=== PATIENT | male | born 1985 | race Caucasian/White ===

== ENCOUNTER 2017-11-25 15:03 | Emergency (ER) | payer MEDICAID ==
[~2017-11-25] VITALS: Ht 182.9 cm; Wt 116.0 kg
[2017-11-25 15:08] VITALS: BP 154/96
[2017-11-25] MEDS ORDERED: mupirocin 2% ointment 22GM TP STA (15:20)
[2017-11-25] MEDS ORDERED: cephalexin 250mg capsule PO ONE (15:20)
[2017-11-25] MEDS ORDERED: DOXY100C43 PO (15:24)
[2017-11-25] MEDS ORDERED: KETO15CR2 TP (15:24)
[2017-11-25] MEDS ORDERED: MUPI22OI30 TOP (15:24)
[2017-11-25] MEDS ORDERED: zinc oxide ointment 30gm tube TP SCH (20:00)
== END 2017-11-25 15:58 | disposition home or self-care (01) ==
LOC: ER 15:03
DX: N49.2 Inflammatory disorders of scrotum (principal); L98.9 Disorder of the skin and subcutaneous tissue, unspecified; Z79.899 Other long term (current) drug therapy
CPT/HCPCS: 99284

== ENCOUNTER 2020-07-25 12:06 | Emergency (ER) | payer MEDICAID ==
[~2020-07-25] VITALS: Ht 182.9 cm; Wt 141.8 kg
[~2020-07-25 12:06] MED LIST: KETO15CR2 TP
[2020-07-25 12:39] LABS: BASOPHILS % (AUTO) 0.5 % (0-1); EOSINOPHILS # (AUTO) 0.2 X10'3 (0-0.9); EOSINOPHILS % (AUTO) 3.1 % (0-6); HEMATOCRIT 43.8 % (42.0-52.0); HEMOGLOBIN 14.6 g/dl (14.0-17.9); LYMPHOCYTES # (AUTO) 1.7 X10'3 (1.1-4.8); MEAN CORPUSCULAR HGB CONC 33.3 g/dL (33.0-36.5); MEAN CORPUSCULAR VOLUME 87.2 FL (78-98); MEAN PLATELET VOLUME 9.7 FL (7.4-10.4); MONOCYTES # (AUTO) 0.6 X10'3 (0-0.9); MONOCYTES % (AUTO) 8.8 % (2-12); NEUTROPHILS # (AUTO) 4.5 X10'3 (1.8-7.7); NEUTROPHILS % (AUTO) 63.6 % (42-75); PLATELET COUNT 196 X10'3 (140-440); RED BLOOD COUNT 5.02 X10'6 (4.70-6.10); RED CELL DISTRIBUTION WIDTH 14.5 % (11.5-14.5); WHITE BLOOD COUNT 7.1 X10'3 (4.5-11.0)
[2020-07-25 12:52] LABS: ALANINE AMINOTRANSFERASE 84 U/L (12-78); ALBUMIN 3.5 G/DL (3.4-5.0); ALBUMIN/GLOBULIN RATIO 0.8 (1.1-1.5); ALKALINE PHOSPHATASE 104 IU/L (46-116); AMYLASE 56 U/L (25-115); ANION GAP 7 (8-16); ASPARTATE AMINO TRANSFERASE 27 U/L (10-37); BILIRUBIN,TOTAL 0.2 MG/DL (0.1-1.0); BLOOD UREA NITROGEN 16 MG/DL (7-18); BUN/CREATININE RATIO 15.1 (5.4-32.0); CALCIUM 8.8 MG/DL (8.5-10.1); CHLORIDE 105 MMOL/L (99-107); CREATININE 1.06 MG/DL (0.60-1.10); GLUCOSE 96 MG/DL (70-104); LIPASE 307 U/L (73-393); POTASSIUM 4.6 MMOL/L (3.5-5.1); SODIUM 140 MMOL/L (135-145); TOTAL CARBON DIOXIDE 28.4 MMOL/L (24-32); TOTAL PROTEIN 7.7 G/DL (6.4-8.2); eGFR 80 ML/MIN
[2020-07-25] MEDS ORDERED: MUPI22OI30 TOP (13:09)
[2020-07-25 13:10] VITALS: BP 135/91
== END 2020-07-25 13:26 | disposition home or self-care (01) ==
LOC: ER 12:07
DX: T14.8XXA Other injury of unspecified body region, initial encounter (principal); R10.33 Periumbilical pain; Z79.2 Long term (current) use of antibiotics; Z79.899 Other long term (current) drug therapy; X58.XXXA Exposure to other specified factors, initial encounter; Y93.89 Activity, other specified; Y92.89 Other specified places as the place of occurrence of the external cause; Y99.8 Other external cause status
CPT/HCPCS: 36415; 80053; 82150; 83690; 85025; 99283

== ENCOUNTER 2021-12-23 11:41 | Emergency (ER) | payer MEDICAID ==
[~2021-12-23] VITALS: Ht 182.9 cm; Wt 153.2 kg
[2021-12-23 12:23] VITALS: BP 141/88
[2021-12-23] MEDS ORDERED: predniSONE 20 mg tablet PO ONE (13:35)
[2021-12-23] MEDS ORDERED: ipratropium/albuterol 3ml nebule NEB PRN (13:35)
[2021-12-23] MEDS ORDERED: PRED20TA PO (15:22)
== END 2021-12-23 15:37 | disposition home or self-care (01) ==
LOC: ER 11:42
DX: J45.901 Unspecified asthma with (acute) exacerbation (principal); F17.200 Nicotine dependence, unspecified, uncomplicated; Z20.822 Contact with and (suspected) exposure to COVID-19
CPT/HCPCS: 71045; 87502; 87503; 87635; 99284; C9803; J7512

== ENCOUNTER 2022-01-04 16:51 | Emergency (ER) | payer MEDICAID ==
[~2022-01-04 16:51] MED LIST changes: +PRED20TA PO
== END 2022-01-04 18:26 | disposition left against medical advice (07) ==
LOC: ER 16:51
DX: R07.9 Chest pain, unspecified (principal); Z53.21 Procedure and treatment not carried out due to patient leaving prior to being seen by health care provider

== ENCOUNTER → 2022-03-20 | Emergency (ER) | payer MEDICAID ==
[~2022-03-20] VITALS: Ht 182.9 cm; Wt 159.1 kg
[~2022-03-20] MED LIST changes: -PRED20TA PO
[2022-03-20 20:48] LABS: BASOPHILS % (AUTO) 0.3 % (0-1); EOSINOPHILS # (AUTO) 0.2 X10'3 (0-0.9); EOSINOPHILS % (AUTO) 2.2 % (0-6); HEMATOCRIT 44.8 % (42.0-52.0); HEMOGLOBIN 15.2 g/dl (14.0-17.9); LYMPHOCYTES # (AUTO) 1.6 X10'3 (1.1-4.8); LYMPHOCYTES % (AUTO) 16.9 % (21-51); MEAN CORPUSCULAR HEMOGLOBIN 29.1 PG (27.0-31.0); MEAN CORPUSCULAR HGB CONC 33.8 g/dL (33.0-36.5); MEAN PLATELET VOLUME 9.4 FL (7.4-10.4); MONOCYTES # (AUTO) 0.9 X10'3 (0-0.9); MONOCYTES % (AUTO) 9.3 % (2-12); NEUTROPHILS # (AUTO) 6.9 X10'3 (1.8-7.7); NEUTROPHILS % (AUTO) 71.3 % (42-75); PLATELET COUNT 209 X10'3 (140-440); RED BLOOD COUNT 5.21 X10'6 (4.70-6.10); RED CELL DISTRIBUTION WIDTH 14.8 % (11.5-14.5); WHITE BLOOD COUNT 9.6 X10'3 (4.5-11.0)
[2022-03-20 20:58] LABS: ALANINE AMINOTRANSFERASE 75 U/L (12-78); ALBUMIN 3.8 G/DL (3.4-5.0); ALBUMIN/GLOBULIN RATIO 0.8 (1.1-1.5); ALKALINE PHOSPHATASE 97 IU/L (46-116); ANION GAP 12 (8-16); ASPARTATE AMINO TRANSFERASE 24 U/L (10-37); BILIRUBIN,TOTAL 0.2 MG/DL (0.1-1.0); BLOOD UREA NITROGEN 15 MG/DL (7-18); CALCIUM 9.5 MG/DL (8.5-10.1); CHLORIDE 102 MMOL/L (99-107); GLUCOSE 100 MG/DL (70-104); POTASSIUM 4.3 MMOL/L (3.5-5.1); SODIUM 139 MMOL/L (135-145); TOTAL PROTEIN 8.7 G/DL (6.4-8.2); eGFR 86 ML/MIN
--- NOTE | 2022-03-20 23:42 | NUR ---
RECEIVED PT IN ROOM 13.CALL LIGHT WITHIN REACH.PATIENT ATTACHED TO SENIOR PAYROLL ADMINISTRATOR.
[2022-03-21 00:25] VITALS: BP 138/89
== END | disposition home or self-care (01) ==
LOC: ER 19:31
DX: R07.89 Other chest pain (principal); I10 Essential (primary) hypertension; J45.909 Unspecified asthma, uncomplicated; Z79.2 Long term (current) use of antibiotics
CPT/HCPCS: 36415; 71045; 80053; 83880; 84484; 85025; 93005; 99285

== ENCOUNTER 2022-05-17 11:59 | Emergency (ER) | payer MEDICAID ==
[~2022-05-17] VITALS: Ht 182.9 cm; Wt 169.6 kg
[2022-05-17 12:37] LABS: BASOPHILS # (AUTO) 0.1 X10'3 (0-0.2); BASOPHILS % (AUTO) 0.9 % (0-1); EOSINOPHILS # (AUTO) 0.3 X10'3 (0-0.9); EOSINOPHILS % (AUTO) 2.7 % (0-6); HEMATOCRIT 47.4 % (42.0-52.0); HEMOGLOBIN 16.3 g/dl (14.0-17.9); LYMPHOCYTES # (AUTO) 2.2 X10'3 (1.1-4.8); LYMPHOCYTES % (AUTO) 22.6 % (21-51); MEAN CORPUSCULAR HEMOGLOBIN 29.2 PG (27.0-31.0); MEAN CORPUSCULAR HGB CONC 34.4 g/dL (33.0-36.5); MEAN CORPUSCULAR VOLUME 84.9 FL (78-98); MEAN PLATELET VOLUME 9.3 FL (7.4-10.4); MONOCYTES % (AUTO) 10.2 % (2-12); NEUTROPHILS # (AUTO) 6.1 X10'3 (1.8-7.7); NEUTROPHILS % (AUTO) 63.6 % (42-75); PLATELET COUNT 229 X10'3 (140-440); RED BLOOD COUNT 5.58 X10'6 (4.70-6.10); RED CELL DISTRIBUTION WIDTH 14.1 % (11.5-14.5); WHITE BLOOD COUNT 9.6 X10'3 (4.5-11.0)
[2022-05-17] MEDS ORDERED: methylPREDNISolone sod succ 125mg/2ml vial IV ONE (12:40)
[2022-05-17] MEDS ORDERED: normal saline 1000ML IV soln IVB ONE (12:40)
[2022-05-17] MEDS ORDERED: ipratropium/albuterol 3ml nebule NEB ONE (12:40)
[2022-05-17 12:49] LABS: ALANINE AMINOTRANSFERASE 104 U/L (12-78); ALBUMIN 4.1 G/DL (3.4-5.0); ALBUMIN/GLOBULIN RATIO 0.9 (1.1-1.5); ALKALINE PHOSPHATASE 111 IU/L (46-116); ANION GAP 10 (8-16); ASPARTATE AMINO TRANSFERASE 33 U/L (10-37); BILIRUBIN,TOTAL 0.2 MG/DL (0.1-1.0); BLOOD UREA NITROGEN 24 MG/DL (7-18); BUN/CREATININE RATIO 21.4 (5.4-32.0); CALCIUM 10.2 MG/DL (8.5-10.1); CHLORIDE 102 MMOL/L (99-107); CREATININE 1.12 MG/DL (0.60-1.10); D-DIMER 0.44 MG/L FEU (0-0.50); GLUCOSE 82 MG/DL (70-104); POTASSIUM 4.5 MMOL/L (3.5-5.1); SODIUM 140 MMOL/L (135-145); TOTAL CARBON DIOXIDE 28.4 MMOL/L (24-32); TOTAL PROTEIN 8.9 G/DL (6.4-8.2); eGFR 75 ML/MIN
[2022-05-17] MEDS ORDERED: PRED20TA PO ×2 (13:44→14:27)
[2022-05-17 14:42] VITALS: BP 157/109
== END 2022-05-17 14:43 | disposition home or self-care (01) ==
LOC: ER 12:00
DX: J40 Bronchitis, not specified as acute or chronic (principal); I10 Essential (primary) hypertension; E78.00 Pure hypercholesterolemia, unspecified
CPT/HCPCS: 36415; 71045; 80053; 83880; 84145; 84484; 85025; 85379; 93005; 94640; 96361; 96374; 99285; J2930; J7030; 94760

== ENCOUNTER 2022-07-01 07:05 | Emergency (ER) | payer MEDICAID ==
[~2022-07-01] VITALS: Ht 182.9 cm; Wt 170.0 kg
[2022-07-01 08:02] LABS: BASOPHILS # (AUTO) 0.1 X10'3 (0-0.2); BASOPHILS % (AUTO) 0.7 % (0-1); EOSINOPHILS # (AUTO) 0.2 X10'3 (0-0.9); EOSINOPHILS % (AUTO) 1.4 % (0-6); HEMATOCRIT 47.3 % (42.0-52.0); HEMOGLOBIN 15.7 g/dl (14.0-17.9); LYMPHOCYTES # (AUTO) 1.6 X10'3 (1.1-4.8); LYMPHOCYTES % (AUTO) 13.5 % (21-51); MEAN CORPUSCULAR HGB CONC 33.2 g/dL (33.0-36.5); MEAN CORPUSCULAR VOLUME 87.4 FL (78-98); MEAN PLATELET VOLUME 9.4 FL (7.4-10.4); MONOCYTES # (AUTO) 1.1 X10'3 (0-0.9); MONOCYTES % (AUTO) 8.9 % (2-12); NEUTROPHILS # (AUTO) 9.1 X10'3 (1.8-7.7); NEUTROPHILS % (AUTO) 75.5 % (42-75); PLATELET COUNT 241 X10'3 (140-440); RED BLOOD COUNT 5.42 X10'6 (4.70-6.10); RED CELL DISTRIBUTION WIDTH 15.4 % (11.5-14.5); WHITE BLOOD COUNT 12.1 X10'3 (4.5-11.0)
[2022-07-01] MEDS ORDERED: GABA-530 PO (08:37)
[2022-07-01] MEDS ORDERED: METO-411 PO (08:37)
[2022-07-01] MEDS ORDERED: ALBU2.5V10 NEB (08:37)
[2022-07-01] MEDS ORDERED: LISI40TA13 PO (08:37)
[2022-07-01] MEDS ORDERED: ATOR40TA72 PO (08:37)
[2022-07-01 08:41] LABS: ALANINE AMINOTRANSFERASE 86 U/L (12-78); CHLORIDE 100 MMOL/L (99-107); SODIUM 138 MMOL/L (135-145)
[2022-07-01 08:44] LABS: ALBUMIN 3.9 G/DL (3.4-5.0); ALBUMIN/GLOBULIN RATIO 0.9 (1.1-1.5); ALKALINE PHOSPHATASE 96 IU/L (46-116); ANION GAP 12 (8-16); ASPARTATE AMINO TRANSFERASE 35 U/L (10-37); BILIRUBIN,TOTAL 0.3 MG/DL (0.1-1.0); BLOOD UREA NITROGEN 31 MG/DL (7-18); BUN/CREATININE RATIO 25.2 (5.4-32.0); CALCIUM 9.8 MG/DL (8.5-10.1); CREATININE 1.23 MG/DL (0.60-1.10); GLUCOSE 101 MG/DL (70-104); MAGNESIUM 2.2 MG/DL (1.5-2.4); POTASSIUM 4.4 MMOL/L (3.5-5.1); TOTAL CARBON DIOXIDE 26.3 MMOL/L (24-32); TOTAL PROTEIN 8.4 G/DL (6.4-8.2); eGFR 67 ML/MIN
[2022-07-01 10:22] VITALS: BP 126/56
[2022-07-01] MEDS ORDERED: PANT20TA18 PO (12:06)
== END 2022-07-01 12:15 | disposition home or self-care (01) ==
LOC: ER 07:05
DX: R07.89 Other chest pain (principal); R06.02 Shortness of breath; R10.9 Unspecified abdominal pain; E78.00 Pure hypercholesterolemia, unspecified; I10 Essential (primary) hypertension; J45.909 Unspecified asthma, uncomplicated; F17.200 Nicotine dependence, unspecified, uncomplicated; Z79.899 Other long term (current) drug therapy
CPT/HCPCS: 36415; 71045; 80053; 83735; 83880; 84484; 85025; 93005; 99285

== ENCOUNTER → 2022-08-08 | Outpatient (CLI) | payer MEDICAID ==
[~2022-08-08] MED LIST changes: +ALBU2.5V10 NEB; +ATOR40TA72 PO; +GABA-530 PO; +LISI40TA13 PO; +METO-411 PO; +PANT20TA18 PO
== END | disposition home or self-care (01) ==
LOC: CARD DIAG 13:33
PROVIDERS: ATTEND Physician Assistant
DX: I37.1 Nonrheumatic pulmonary valve insufficiency (principal); I77.89 Other specified disorders of arteries and arterioles; R06.02 Shortness of breath; I10 Essential (primary) hypertension; R60.0 Localized edema
CPT/HCPCS: 93306

== ENCOUNTER 2023-02-19 08:44 | Emergency (ER) | payer MEDICAID ==
[~2023-02-19] VITALS: Ht 182.9 cm; Wt 176.4 kg
[2023-02-19 08:45] VITALS: BP 177/99; PULSE 99; TEMP 98.1; O2SAT 98
[2023-02-19] MEDS ORDERED: LIDO700A32 TOP (10:38)
[2023-02-19] MEDS ORDERED: LIDOcaine 5% patch TP STA (10:38)
[2023-02-19] MEDS ORDERED: HYDROcodone/acetaminophen 10/325mg tab PO ONE (10:40)
[2023-02-19 10:50] VITALS: RESP 19
== END 2023-02-19 10:57 | disposition home or self-care (01) ==
LOC: ER 08:45
DX: R07.1 Chest pain on breathing (principal)
CPT/HCPCS: 71100; 99283

== ENCOUNTER 2024-12-23 09:42 | Inpatient (IN) | payer MEDICAID ==
[2024-12-23] VITALS (9 sets, daily range): BP systolic 139; BP diastolic 80; PULSE 94–106; RESP 20–28; TEMP 97.8; O2SAT 95–99
[~2024-12-23] VITALS: Ht 182.9 cm; Wt 181.8 kg
[~2024-12-23 09:42] MED LIST changes: +LIDO-52 TOP
--- NOTE | 2024-12-23 09:49 | Physician Documentation ---
History of Present Illness ~ Chief Complaint: Shortness of Breath Stated Complaint: RESPIRATORY DISTRESS Time Seen by MD: 09:52 Primary Medical Doctor: DR URENA HPI 49-year-old male presents to the ED with a complaint of shortness a breath which has worsened over yesterday evening. He states he developed a cough and URI symptoms however he has a pre-existing diagnosis of asthma. Throughout the night he had difficulty catching his breath. Presents very short of breath 1-2 word sentences Complains of midsternal pain. Day of Onset: Dec 23, 2024 Medication Reconciliation Allergies: Uncoded Allergies: MAJOR ANESTHESIAS (Allergy, Unknown, MALIGNANT HYPERTHERMIA, 05/17/22) MALIGNANT HYPERTHERMIA (Allergy, Unknown, 12/23/21) Scheduled Atorvastatin Calcium (Atorvastatin Calcium), 1 TAB PO DAILY, (Reported) Gabapentin (Gabapentin), 100 MG PO TID, (Reported) Ketoconazole (Ketoconazole), 1 APPLIC TP TID Lidocaine (Lidoderm), 1 PATCH TOP DAILY Lisinopril* (Lisinopril*), 1 TAB PO DAILY, (Reported) Metoprolol Succinate (Metoprolol Succinate), 1 TAB PO DAILY, (Reported) Pantoprazole Sodium (Protonix), 1 TAB PO DAILY Scheduled PRN Albuterol Sulfate (Albuterol Sulfate), VIAL NEB TID PRN for wheezing, (Reported) Past Medical History Past Medical History: *CARDIOVASCULAR*, , High Cholesterol, Hypertension, Asthma Past Surgical History: no surgical history Alcohol Use: None Drug Use: none Lives with: Family Lives In: Home Review of Systems All Other Systems at this time: Reviewed and Negative ROS As stated above in the HPI, otherwise all systems are reviewed and negative. Physical Exam Physical Exam General: Alert, . large body habitus HEENT: PERRL, EOMI, no injection, moist mucous membranes. Neck: Full range of motion. Respiratory: Lungs clear, moderate-severe respiratory distress Chest: Positive for accessory muscle use Psychiatric: Normal mood and affect. Skin: Flush skin Progress Results/Orders Results/Orders Orders - GASPER WATT NP Svn Treatment (12/23/24 ) Chest,Two Views (12/23/24 09:49) Culture Blood (12/23/24 09:49) Saline Lock (12/23/24 09:49) Oxygen (12/23/24 09:49) Cta Chest Pe (12/23/24 10:17) Page Hospitalist (12/23/24 ) Completed Orders - GASPER WATT SUPPLY TEACHER Ipratropium/Albuterol Nebule (Ipratrop/A (12/23/24 09:50) Methylprednisolone Sod Succ (Solumedrol (12/23/24 09:50) Chest,Two Views (12/23/24 09:49) Cbc/Diff (12/23/24 09:49) BMP (12/23/24 09:49) PBNP (12/23/24 09:49) Lacticsepsis (12/23/24 09:49) Cta Chest Pe (12/23/24 10:17) Stat Ekg (12/23/24 10:39) Iohexol 350mg/Ml 100ml (Omnipaque 350mg/ (12/23/24 11:32) Hgb A1c (12/23/24 10:38) Vital Signs 12/23/24 12/23/24 12/23/24 12/23/24 09:45 10:09 10:12 10:32 Temp 97.4 Pulse 113 106 105 Resp 28 28 24 36 B/P (MAP) 172/92 Pulse Ox 96 99 O2 Delivery Room Air* Room Air* O2 Flow Rate 0 0 0 FiO2 21 21 12/23/24 12/23/24 11:35 12:30 Pulse 107 97 Resp 30 19 B/P (MAP) 174/109 (130) 156/103 (120) Pulse Ox 93 95 O2 Flow Rate 0 Laboratory Tests Test 12/23/24 10:38 White Blood Count 8.1 Red Blood Count 4.79 Hemoglobin 13.7 L Hematocrit 40.7 L Mean Corpuscular Volume 85.0 Mean Corpuscular Hemoglobin 28.6 Mean Corpuscular Hemoglobin Concent 33.6 Red Cell Distribution Width 15.1 H Platelet Count 163 Mean Platelet Volume 10.2 Neutrophils (%) (Auto) 80.5 H Lymphocytes (%) (Auto) 10.0 L Monocytes (%) (Auto) 7.5 Eosinophils (%) (Auto) 1.6 Basophils (%) (Auto) 0.4 Neutrophils # (Auto) 6.5 Lymphocytes # (Auto) 0.8 L Monocytes # (Auto) 0.6 Eosinophils # (Auto) 0.1 Basophils # (Auto) 0.0 CBC Comment Sodium Level 141 Potassium Level 4.1 Chloride Level 106 Carbon Dioxide Level 26.4 Anion Gap 9 Blood Urea Nitrogen 14 Creatinine 1.07 Estimated GFR/1.73 m2 78 BUN/Creatinine Ratio 13.1 Glucose Level 98 Hemoglobin A1c 5.9 Lactic Acid Level 1.8 Calcium Level 8.9 Pro-B-Type Natriuretic Peptide 232 H Albumin 3.5 Chemistry Comments Medical Decision Making Findings Patient received SVN treatment and steroids in the ED with only minimal improvement. Notable for severe wheezes he does have grossly diminished lung sounds trying to rule out a pulmonary embolism via CT Departure Disposition: ADMITTED INPATIENT Impression: Primary Impression: Asthma Additional Impression: Respiratory distress Condition: Fair Referrals: NO PRIMARY CARE PROVIDER (PCP) Signature Scribe Signature: c Attestation: Scribed for Gasper Watt Senior Master Scheduler by Gasper De Jesus NP . 12/23/24 18:19 GASPER WATT SUPPLY TEACHER Dec 23, 2024 09:49
[2024-12-23] MEDS: ipratropium/albuterol 3ml nebule NEB ONE (10:06)
[2024-12-23] MEDS: methylPREDNISolone sod succ 125mg/2ml vial IV ONE (10:40)
[2024-12-23 11:00] LABS: BASOPHILS % (AUTO) 0.4 % (0-1); EOSINOPHILS # (AUTO) 0.1 X10'3 (0-0.9); EOSINOPHILS % (AUTO) 1.6 % (0-6); HEMATOCRIT 40.7 % (42.0-52.0); HEMOGLOBIN 13.7 g/dl (14.0-17.9); LYMPHOCYTES # (AUTO) 0.8 X10'3 (1.1-4.8); MEAN CORPUSCULAR HEMOGLOBIN 28.6 PG (27.0-31.0); MEAN CORPUSCULAR HGB CONC 33.6 g/dL (33.0-36.5); MEAN PLATELET VOLUME 10.2 FL (7.4-10.4); MONOCYTES # (AUTO) 0.6 X10'3 (0-0.9); MONOCYTES % (AUTO) 7.5 % (2-12); NEUTROPHILS # (AUTO) 6.5 X10'3 (1.8-7.7); NEUTROPHILS % (AUTO) 80.5 % (42-75); PLATELET COUNT 163 X10'3 (140-440); RED BLOOD COUNT 4.79 X10'6 (4.70-6.10); RED CELL DISTRIBUTION WIDTH 15.1 % (11.5-14.5); WHITE BLOOD COUNT 8.1 X10'3 (4.5-11.0)
[2024-12-23 11:15] LABS: ALBUMIN 3.5 G/DL (3.4-5.0); ANION GAP 9 (8-16); BLOOD UREA NITROGEN 14 MG/DL (7-18); BUN/CREATININE RATIO 13.1 (10.0-20.0); CALCIUM 8.9 MG/DL (8.5-10.1); CHLORIDE 106 MMOL/L (99-107); CREATININE 1.07 MG/DL (0.60-1.10); GLUCOSE 98 MG/DL (70-104); POTASSIUM 4.1 MMOL/L (3.5-5.1); PRO BRAIN NATRIURETIC PEPTIDE 232 PG/ML (0-125); SODIUM 141 MMOL/L (135-145); TOTAL CARBON DIOXIDE 26.4 MMOL/L (24-32); eCRCL 104 ML/MIN; eGFR 78 ML/MIN
[2024-12-23] MEDS ORDERED: iohexol 350MG/ML 100ml bottle IV ONE (11:32)
[2024-12-23] MEDS ORDERED: acetaminophen 325mg tablet PO PRN ×2 (13:30)
[2024-12-23] MEDS ORDERED: magnesium sulf-water 2g/50mL 50 ML IV PRN (13:30)
[2024-12-23] MEDS ORDERED: mag hydrox/Alum hydrox/simeth 30ml oral suspension PO PRN (13:30)
[2024-12-23] MEDS ORDERED: ondansetron/PF 4mg/2ml inj IV PRN (13:30)
[2024-12-23] MEDS ORDERED: morphine 2 MG/ML inj. syringe IV PRN ×2 (13:30)
[2024-12-23] MEDS ORDERED: magnesium sulf-water 4G/100mL 100 ML IV PRN (13:30)
[2024-12-23] MEDS ORDERED: potassium Cl 20 mEq SR tablet PO PRN ×2 (13:30)
[2024-12-23] MEDS ORDERED: potassium Cl 40MEQ/1/2NS 520ml 520 ML IV PRN (13:30)
[2024-12-23] MEDS ORDERED: HYDROcodone/acetaminophen 5mg/325mg tablet PO PRN (13:30)
[2024-12-23] MEDS ORDERED: ondansetron 4mg rapidly disintigrating tab PO PRN (13:30)
[2024-12-23] MEDS ORDERED: magnesium hydroxide 30ml (MOM) UD suspension PO PRN (13:30)
--- NOTE | 2024-12-23 13:48 | RADIOLOGY REPORT ---
CTA Chest with intravenous contrast INDICATION: rule out PE COMPARISON: None TECHNIQUE: Multidetector spiral CTA of the chest was performed of the chest with intravenous contrast . PULMONARY ANGIOGRAPHY PROTOCOL was utilized using a bolus-tracking technique centered on the main p ulmonary artery. Axial, coronal and sagittal multiplanar and MIP reformats were performed. CONTRAST: Type of contrast: Omni 350 Contrast injected: 100 ml Radiation dose : Chest: CTDI volume is 24 mGy. Dose-length product is 978 mGy*cm The dose indicators for CT are the volume computed Tomography (CT) dose Index (CTDIvol) and the dose Length product (DLP), and are measured in units of mGy and mGy-cm, respectively. These indicators are not patient dose, but values generated from the CT scanner acquisition factors. The report includes radiation exposure data for exposures received during this examination. Findings: Limited by motion. Pulmonary artery: No large central or large segmental pulmonary embolism. Lower neck: Normal thyroid. Lungs: Mild patchy ground-glass opacity in both lungs. Heart/Vascular Structures: Normal heart size. No pericardial effusion. Lymph Nodes: No adenopathy Pleura: No pleural effusion or significant pneumothorax. Musculoskeletal: No acute osseous abnormality. Soft tissues: Normal. Upper abdomen: Limited portions of the upper abdomen are unremarkable. IMPRESSION: 1. No large central pulmonary embolism. 2. Patchy ground-glass opacities in both lungs likely represent subsegmental atelectasis. HS:Y
[2024-12-23] MEDS ORDERED: hydrALAZINE 20mg/ml inj. IV PRN (13:55)
[2024-12-23] MEDS ORDERED: ipratropium/albuterol 3ml nebule NEB PRN (14:00)
--- NOTE | 2024-12-23 14:23 | ELECTROCARDIOGRAPH REPORT ---
[facility] Test Date: 2024-12-23 Test Time: 10:41:53 Pat Name: PEREZ PEDRAZA Department: EMERGENCY ROOM Room: Gender: M Ms Sql Dba: EUGENIO : 1985 Requested By: OLINDA WATT Order Number: [id number] Reading MD: Measurements Intervals [place] Rate: 105 P: 69 [place]: 123 QRS: 35 QRSD: 110 T: 71 QT: 349 QTc: 462 Interpretive Statements Sinus tachycardia Right atrial enlargement Consider right ventricular hypertrophy Baseline wander in lead(s) V4 Please click the below link to view image of tracing.
[2024-12-23] MEDS: CefTRIAXone 2gm/D5W 50ml BAG 50 ML IV ONE (14:25)
[2024-12-23 14:33] LABS: D-DIMER 0.39 MG/L FEU (0-0.50)
[2024-12-23 14:39] LABS: HEMOGLOBIN A1C 5.9 % (4.5-6.2)
[2024-12-23 14:41] LABS: CHOL/HDL RATIO 3.6 (0.00-4.99); CHOLESTEROL 190 MG/DL (0-200); HDL CHOLESTEROL 53 MG/DL (35-60); LDL CHOLESTEROL 110 MG/DL (50-100); MAGNESIUM 1.7 MG/DL (1.5-2.4); TRIGLYCERIDES 110 MG/DL (20-135)
[2024-12-23 14:42] LABS: POTASSIUM 4.4 MMOL/L (3.5-5.1)
--- NOTE | 2024-12-23 15:44 | HISTORY AND PHYSICAL ---
History & Physical Providers to CC ~ History of Present Illness Reason for Admit\Complaint: Community-acquired pneumonia History of Present Illness Kashif gant is a 39-year-old male with past medical history of asthma, prediabetes, hyperlipidemia, hypertension, NAFLD and family history of malignant hypothermia who presented to the ED with chief complaint of acute onset shortness of breath and intermittent localized left chest pain burning in quality with associated symptoms of nonproductive cough x 2 days. Patient reports his family recently being ill from RSV. Patient denies prior [place]/CAD, CVA, cardiac arrhythmia, DVT/PE, or GIB. Patient denies palpitations, abdominal pain, n/v/d, fever, chills, dysuria. Initial diagnostic findings are notable for sinus tachycardia and CTA revealing mild patchy ground-glass opacity in both lungs and atelectasis and no evidence of pulmonary embolism. EKG reveals sinus tachycardia at 105bpm, right atrial enlargement, no S1Q3T3, no ST elevation/depression. Pertinent negative findings are normal D-dimer, normal lactic acid, negative procal, unremarkable NT-pBNP, negative troponin, no leukocytosis, oxygen saturation in 90s on room air. Patient is to be admitted for further workups and treatment. Allergies: Uncoded Allergies: MAJOR ANESTHESIAS (Allergy, Unknown, MALIGNANT HYPERTHERMIA, 05/17/22) MALIGNANT HYPERTHERMIA (Allergy, Unknown, 12/23/21) Home Medications Home Medications Active Lidoderm (Lidocaine) 5 % Adh..patch 1 Patch TOP DAILY 30 Days may wear up to 12 hours Protonix (Pantoprazole Sodium) 20 Mg Tablet.dr 1 Tab PO DAILY 30 Days Ketoconazole 15 Gm Cream..g. 1 Applic TP TID Reported Gabapentin 100 Mg Capsule 100 Mg PO TID Albuterol Sulfate (Albuterol) 2.5 Mg/3 Ml Vial.neb Vial NEB TID PRN Atorvastatin Calcium 40 Mg Tablet 1 Tab PO DAILY Metoprolol Succinate 100 Mg Tab.sr.24h 1 Tab PO DAILY Lisinopril* (Lisinopril) 40 Mg Tablet 1 Tab PO DAILY Past Medical History Past Medical History Asthma Prediabetes Hyperlipidemia Hypertension NAFLD Morbid obesity ENID Past Social History Social History Comment Alcohol: Occasionally Tobacco: Current smoker, 22-pack year history Illicit drug use: Denies Living situation: Lives at home with family ROS ROS Other than positives in HPI, all 14 review of systems are negative Exam Vitals: Vital Signs Date Time Temp Pulse Resp B/P (MAP) Pulse Ox O2 Delivery O2 Flow Rate FiO2 12/23/24 13:52 84 14 117/46 (69) 98 0 12/23/24 10:12 Room Air* 21 12/23/24 09:45 97.4 General: A&Ox 3, NAD, morbidly obese HEENT: Normocephalic, PERRLA Neck: Supple, trachea midline, no JVD Chest: Clear to auscultation bilaterally Cardiovascular: RRR, S1&S2 Abdomen: Soft and nontender Extremities: No cyanosis/clubbing/or edema Central Nervous System: CN II-XII intact, no focal deficits Musculoskeletal: No paraspinal muscle tenderness, no muscle spasm Skin: Facial flushing, flushing of bilateral upper extremities Diagnostic Data Last Recorded Lab Results: 12/23/24 1038 12/23/24 1404 Diagnostic Data: Laboratory Tests Test 12/23/24 14:04 D-Dimer 0.39 MG/L FEU (0-0.50) D-Dimer Comment Counseling Services Smoking & Tobacco Cessation: > 10 Minutes Additional Plan # Community-acquired pneumonia # Asthma, not in acute exacerbation -CTA revealing mild patchy ground-glass opacity in both lungs and atelectasis and no evidence of pulmonary embolism; EKG reveals sinus tachycardia at 105bpm, right atrial enlargement, no S1Q3T3, no ST elevation/depression. 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 I provided extensive counseling regarding smoking cessation. I spent a total of 35 minutes discussing Advanced Care Planning measures with the patient. Advance care planning: Discussed with patient the importance of advance care planning in case of emergent situation. We discussed various resuscitative measures/ ACP with the patient at the time of admission. Patient voiced understanding and patient has decided on a full code status. Date of Service: Dec 23, 2024 Billing Provider: CECILE MALIK Common Visit Codes: [id number] INP/OBS CARE (HIGH) Secondary Visit Codes: [id number] CHNG SMOKING >10MIN, [id number] CARE PLAN 30 MINUTES CECILE MALIK Dec 23, 2024 15:44
[2024-12-23] MEDS: azithromycin/NS 500mg/250ml 250 ML IV ONE (16:12)
[2024-12-23] MEDS: nicotine 21mg patch - 24 hr TD ONE (16:12)
[2024-12-23] MEDS: normal saline 1000ml 1,000 ML IV SCH (16:12)
[2024-12-23] MEDS: metoprolol succinate 25mg (24-HOUR) SR. Tablet PO ONE (16:14)
[2024-12-23] MEDS: heparin, porcine 5000 units/ml vial SQ SCH (16:14)
[2024-12-23] MEDS: lisinopril 20mg tablet PO ONE (16:15)
[2024-12-23] MEDS: pantoprazole 40 MG vial IV ONE (16:15)
[2024-12-23] MEDS: albuterol 2.5 MG/3 ML nebule NEB SCH (16:17)
[2024-12-23] MEDS: labetalol 20mg/4ml (5mg/ml) syringe IV ONE (18:11)
[2024-12-23] MEDS: K and/or MAG REPLACEMENT MC SCH (20:00)
[2024-12-23] MEDS: docusate sod 100mg capsule PO SCH (20:00)
[2024-12-23] MEDS: methylPREDNISolone sod succ 125mg/2ml vial IV SCH (20:57)
[2024-12-23] MEDS: atorvastatin 20mg tablet PO SCH (21:03)
[2024-12-24] MEDS: hyDRALAzine 10mg tablet PO SCH (00:58)
[2024-12-24 02:00] VITALS: BP 128/85; PULSE 103; RESP 16; TEMP 97.6; O2SAT 99
[2024-12-24 03:33] VITALS: PULSE 87; RESP 20; O2SAT 99
[2024-12-24 03:38] VITALS: PULSE 90; RESP 20
[2024-12-24] MEDS: HYDROcodone/acetaminophen 10/325mg tab PO PRN (04:12)
[2024-12-24 07:19] LABS: BASOPHILS % (AUTO) 0.1 % (0-1); EOSINOPHILS % (AUTO) 0 % (0-6); HEMATOCRIT 40.6 % (42.0-52.0); HEMOGLOBIN 13.5 g/dl (14.0-17.9); LYMPHOCYTES # (AUTO) 0.5 X10'3 (1.1-4.8); MEAN CORPUSCULAR HEMOGLOBIN 28.4 PG (27.0-31.0); MEAN CORPUSCULAR HGB CONC 33.2 g/dL (33.0-36.5); MEAN CORPUSCULAR VOLUME 85.5 FL (78-98); MEAN PLATELET VOLUME 10.4 FL (7.4-10.4); MONOCYTES # (AUTO) 0.4 X10'3 (0-0.9); MONOCYTES % (AUTO) 4.4 % (2-12); NEUTROPHILS # (AUTO) 7.9 X10'3 (1.8-7.7); NEUTROPHILS % (AUTO) 89.5 % (42-75); PLATELET COUNT 180 X10'3 (140-440); RED BLOOD COUNT 4.74 X10'6 (4.70-6.10); RED CELL DISTRIBUTION WIDTH 15.1 % (11.5-14.5); WHITE BLOOD COUNT 8.9 X10'3 (4.5-11.0)
[2024-12-24 07:38] LABS: ALANINE AMINOTRANSFERASE 58 U/L (12-78); ALBUMIN 3.1 G/DL (3.4-5.0); ALBUMIN/GLOBULIN RATIO 0.8 (1.1-1.5); ALKALINE PHOSPHATASE 70 IU/L (46-116); ANION GAP 9 (8-16); ASPARTATE AMINO TRANSFERASE 26 U/L (10-37); BILIRUBIN,TOTAL 0.2 MG/DL (0.1-1.0); BLOOD UREA NITROGEN 16 MG/DL (7-18); BUN/CREATININE RATIO 14.3 (10.0-20.0); CALCIUM 8.6 MG/DL (8.5-10.1); CHLORIDE 106 MMOL/L (99-107); CREATININE 1.12 MG/DL (0.60-1.10); GLUCOSE 164 MG/DL (70-104); MAGNESIUM 1.9 MG/DL (1.5-2.4); POTASSIUM 4.3 MMOL/L (3.5-5.1); SODIUM 141 MMOL/L (135-145); TOTAL CARBON DIOXIDE 26.4 MMOL/L (24-32); eCRCL 99 ML/MIN; eGFR 74 ML/MIN
[2024-12-24 08:00] VITALS: RESP 22
[2024-12-24] MEDS ORDERED: AZIT-164 PO (08:13)
[2024-12-24] MEDS ORDERED: AMOX-419 PO (08:13)
[2024-12-24] MEDS ORDERED: LISI20TA28 PO (08:13)
[2024-12-24] MEDS: CefTRIAXone 2gm/D5W 50ml BAG 50 ML IV SCH (08:13)
[2024-12-24] MEDS ORDERED: NOR5T PO (08:13)
[2024-12-24] MEDS: pantoprazole 40 MG vial IV SCH (08:17)
[2024-12-24] MEDS: nicotine 21mg patch - 24 hr TD SCH (08:18)
[2024-12-24] MEDS: amLODIPine 5mg tablet PO SCH (08:18)
[2024-12-24 08:20] VITALS: BP_SYST 106; PULSE 93
[2024-12-24] MEDS: metoprolol succinate 25mg (24-HOUR) SR. Tablet PO SCH (08:20)
[2024-12-24] MEDS: lisinopril 20mg tablet PO SCH (08:20)
[2024-12-24] MEDS: azithromycin/NS 500mg/250ml 250 ML IV SCH (08:27)
[2024-12-24] MEDS ORDERED: BUDE10.2 INH (11:21)
--- NOTE | 2024-12-24 12:18 | DISCHARGE SUMMARY ---
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) Prediabetes Hyperlipidemia Class III obesity NAFLD ENID Tobacco abuse Nicotine dependence Operations\Procedures: None Consultants: None Complications: None Condition on DC: Stable New Medications: Amoxicillin/Potassium Clav (Augmentin 500-125 Tablet) 500 Mg-125 Mg Tablet 1 TAB PO Q12H for 7 Days, #14 TAB Azithromycin (Zithromax) 250 Mg Tablet 1 TAB PO DAILY for 5 Days, #6 TAB Take 2 tablets by mouth on day 1, take 1 tablet day 2-5 Budesonide/Formoterol Fumarate (Symbicort 160-4.5 Mcg Inhaler) 160 Mcg-4.5 Mcg/Actuation Hfa.aer.ad 2 PUFFS INH Q12H for 30 Days, #10.2 GM 0 Refills Amlodipine Besylate (Amlodipine Besylate) 5 Mg Tablet 10 MG PO DAILY for 90 Days, #180 TAB Lisinopril (Lisinopril) 20 Mg Tablet 40 MG PO DAILY for 90 Days, #90 TAB Continued Medications: Albuterol Sulfate (Albuterol Sulfate) 2.5 Mg/3 Ml Vial.neb VIAL NEB TID PRN for wheezing Atorvastatin Calcium (Atorvastatin Calcium) 40 Mg Tablet 1 TAB PO DAILY Ketoconazole (Ketoconazole) 15 Gm Cream..g. 1 APPLIC TP TID, #1 Lidocaine (Lidoderm) 5 % Adh..patch 1 PATCH TOP DAILY for 30 Days, #30 PATCH 0 Refills may wear up to 12 hours Metoprolol Succinate (Metoprolol Succinate) 100 Mg Tab.sr.24h 1 TAB PO DAILY Discharge Summary: History of Present Illness Kashif gant is a 39-year-old male with past medical history of asthma, prediabetes, hyperlipidemia, hypertension, NAFLD and family history of malignant hypothermia who presented to the ED with chief complaint of acute onset shortness of breath and intermittent localized left chest pain burning in quality with associated symptoms of nonproductive cough x 2 days. Patient reports his family recently being ill from RSV. Patient denies prior [place]/CAD, CVA, cardiac arrhythmia, DVT/PE, or GIB. Patient denies palpitations, abdominal pain, n/v/d, fever, chills, dysuria. Initial diagnostic findings are notable for sinus tachycardia and CTA revealing mild patchy ground-glass opacity in both lungs and atelectasis and no evidence of pulmonary embolism. EKG reveals sinus tachycardia at 105bpm, right atrial enlargement, no S1Q3T3, no ST elevation/depression. Pertinent negative findings are normal D-dimer, normal lactic acid, negative procal, unremarkable NT-pBNP, negative troponin, no leukocytosis, oxygen saturation in 90s on room air. Patient is to be admitted for further workups and treatment. Hospital Course Diagnostic workups were notable for CTA revealing mild patchy ground-glass opacity in both lungs and atelectasis and no evidence of pulmonary embolism. EKG revealed sinus tachycardia at 105bpm, right atrial enlargement, no S1Q3T3, no ST elevation/depression. Pertinent negative findings were negative troponin, HEART score 2, normal D-dimer, normal lactic acid, negative procal, no leukocytosis, oxygen saturation in 90s on room air, NT-pBNP 232. Patient was treated with empirical antibiotics, bronchodilators, steroid. With HEART score 2 and negative troponin, further stress test was not pursued. Patient did not experience further complications throughout the entire hospital stay and made a good recovery. Patient was seen and examined on the day of discharge. On day of discharge, vss and labs unremarkable. All labs, diagnostic workups, discharge plan discussed with patient in details during visit before discharge. All questions and concerns answered to the best of my professional knowledge. Patient ambulates independently. Patient recovered well, hence discharged earlier than expected. Patient is to be discharged to home to self and to follow-up with PCP with 2 weeks. Physical Exam General: A&Ox 3, NAD HEENT: Normocephalic, PERRLA Neck: Supple, trachea midline, no JVD Chest: Clear to auscultation bilaterally Cardiovascular: RRR, S1&S2 GI: Soft and nontender Extremities: No cyanosis/clubbing/or edema DIRECTOR SPEECH: CN II-XII intact, no focal deficits Musculoskeletal: No paraspinal muscle tenderness, no muscle spasm Skin: Warm and intact *Problems/Diagnosis: (1) Bronchitis Status: Acute Total Time Spent on D/C: > 30 Minutes Date of Service: Dec 24, 2024 Billing Provider: CECILE MALIK Common Visit Codes: 05670-JWZ/OBS DISCH DAY >30min CECILE MALIK BICYCLE II ASSEMBLER Dec 24, 2024 12:17
--- NOTE | 2024-12-25 03:11 | CARDIOLOGY REPORT ---
APPROVED REPORT EXAM: Comprehensive 2D, Doppler, and color-flow Echocardiogram. Patient Location: 3[address] Blood Pressure: 117/46 mmHg Heart Rate: 86 bpm Rhythm: Sinus Rhythm Indications Congestive Heart Failure Respiratory Distress Pneumonia Recent RSV Pre-Diabetes Hypertension Asthma Hx of Dilated Ascending Aorta Biodiesel Production Associate: Kusum Iglesias MD Previous echo: 08/08/2022 [facility] EF:70% mild RV, mild TR, MR 2D Dimensions LA Diam4.7 cm IVSd 1.4 (0.7-1.1cm) LVDd 4.7 cm PWd 1.4 (0.7-1.1cm) RA Minor4.1 cmLVOT Diameter 2.29 (1.8-2.4cm) Ao Asc Diam.3.84 cmCO 4.7 L/min M-Mode Dimensions RVDd 3.57 (2.1-3.2cm) IVSd 1.91 (0.7-1.1cm) LVDd 5.09 (4.0-5.6cm) Aortic Root 4.17 (2.2-3.7cm) PWd 1.65 (0.7-1.1cm) Aortic Cusp Exc 2.52 (1.5-2.0cm) IVSs 1.97 cm MV EPSS 1.2 (<0.5cm) LVDs 3.91 (2.0-3.8cm) FS (%) 26 % PWs 1.97 cm ESV(Teich) 56.0 ml LVEF(%) 51 (>50%) Aortic Valve AoV Peak Fermin. 141.0 cm/s AoV VTI 21.5 cm AO Peak GR. 7.9 mmHg AO Mean GR. 3 mmHg LVOT VTI 22.75 cm LVOT Peak Fermin. 120.3 cm/s JA(VTI)/BSA 4.36 cm2/m2 JA (VTI) 4.36 cm2 Mitral Valve MV Peak Gr. 3 mmHg MV Mean Gr. 1 mmHg MV PHT 60 ms MVA (PHT) 3.67 cm2 MV VMax89.8 cm/sMV VMean52.0 cm/s MV VTI23.3 cm Tricuspid Valve TR P. Velocity 195 cm/s RAP ESTIMATE 10 mmHg TR Peak Gr. 15 mmHg RVSP 25 mmHg LEFT VENTRICLE Normal LV size with mildly reduced function. Mild to moderate concentric hypertrophy. Overall LVEF is 50-55%. RIGHT VENTRICLE Right ventricle is mild to moderately dilated with grossly normal function. Estimated PA systolic pre ssure is 25 mmHg. ATRIA Left atrium is moderately dilated. MITRAL VALVE Trileaflet AV appears sclerotic without stenosis or insufficiency. TRICUSPID VALVE TV appears structurally normal with trace regurgitation. PULMONIC VALVE Grossly normal PV without stenosis, physiologic insufficiency. GREAT VESSELS Aortic root is dilated and measures at 4.1 cm. Ascending aorta is dilated. It measures at 3.8 cm. IVC is not well visualized. PERICARDIUM Grossly normal pericardium. No pericardial effusion seen. Other Information Study Quality: Fair. TDS due to body habitus and respiratory status. Morbid obseity. Conclusion Normal LV size with mildly reduced function. Mild to moderate concentric hypertrophy. Overall LVEF is 50-55%. Right ventricle is mild to moderately dilated with grossly normal function. Estimated PA systolic pre ssure is 25 mmHg. Left atrium is moderately dilated. Trileaflet AV appears sclerotic without stenosis or insufficiency. TV appears structurally normal with trace regurgitation. Aortic root is dilated and measures at 4.1 cm. Ascending aorta is dilated. It measures at 3.8 cm. Grossly normal pericardium. No pericardial effusion seen.
== END 2024-12-24 11:59 | disposition home or self-care (01) | DRG 139 ==
LOC: ER 09:42 → ED HOLD 13:30 → PCU 3S 22:40
PROVIDERS: ADMIT Nurse Practitioner Family; ATTEND Nurse Practitioner Family
PROC: 5A09357 Assistance with Respiratory Ventilation, Less than 24 Consecutive Hours, Continuous Positive Airway Pressure (ICD-10-PCS; principal; 2024-12-24)
DX: J18.9 Pneumonia, unspecified organism (principal); K76.0 Fatty (change of) liver, not elsewhere classified; Z68.43 Body mass index [BMI] 50.0-59.9, adult; E66.01 Morbid (severe) obesity due to excess calories; E78.00 Pure hypercholesterolemia, unspecified; I10 Essential (primary) hypertension; F17.200 Nicotine dependence, unspecified, uncomplicated; J45.909 Unspecified asthma, uncomplicated; J98.11 Atelectasis; E66.813 Obesity, class 3; G47.33 Obstructive sleep apnea (adult) (pediatric); Z88.8 Allergy status to other drugs, medicaments and biological substances; Z71.6 Tobacco abuse counseling; Z79.51 Long term (current) use of inhaled steroids; Z80.9 Family history of malignant neoplasm, unspecified
CPT/HCPCS: 36415; 71046; 71275; 80048; 80053; 80061; 83036; 83605; 83735; 83880; 84132; 84145; 84484; 85025; 85379; 87040; 87081; 93005; 93306; 94640; 94760; 96365; 96367; 96375; 99285; G0378; J0456; J0696; J1644; J2470; J2919; J3490; J7030; Q9967